=== PATIENT | female | born 1960 | race Hispanic/Latino ===

== ENCOUNTER 2017-03-31 15:32 | Emergency (ER) | payer OTHER ==
[2017-03-31] MEDS ORDERED: Morphine 2 mg/ml ISec IVP STA ×2 (15:54→16:43)
[2017-03-31 15:57] VITALS: PULSE 70; TEMP 98.9; O2SAT 100
--- NOTE | 2017-03-31 16:03 | ED PDOC ---
Arrival/HPI - General Chief Complaint: Upper Extremity Problem/Injury Time Seen by Provider: 03/31/17 15:54 Historian: Patient - History of Present Illness Narrative History of Present Illness (Text): 03/31/17 15:55 This 56 yo female presents to this ED c/o left wrist pain x [employer]. Patient stated she fell down backwards during ice skating class. She said she put her left hand down to break the fall. Patient denies elbow pain, shoulder pain, sob , cp, back pain, hip pain, neck pain, head injury, LOC, dizziness, or syncope. Time/Duration: Prior to Arrival Quality: Aching Context: School Past Medical History - Provider Review Nursing Documentation Reviewed: Yes - Infectious Disease Hx of Infectious Diseases: None - Reproductive Menopause: Yes - Psychiatric Hx Substance Use: No - Anesthesia Hx Anesthesia: No Hx Anesthesia Reactions: No Hx Malignant Hyperthermia: No Family/Social History - Physician Review Nursing Documentation Reviewed: Yes Family/Social History: No Known Family HX Smoking Status: Never Smoked Hx Alcohol Use: Yes Frequency of alcohol use: Socially Hx Substance Use: No Allergies/Home Meds Allergies/Adverse Reactions: Allergies No Known Allergies Allergy (Verified 03/31/17 15:45) Physical Exam Vital Signs Temp Pulse Resp BP Pulse Ox 03/31/17 18:00 70 16 92/50 L 100 03/31/17 15:55 98.9 F 70 18 76/46 L 100 03/31/17 15:37 72 20 95 Medical Decision Making ED Course and Treatment: 03/31/17 17:[address] Edwards Orthopedist. I reviewed x-rays with him. Mild displacement of Fx. He recommended splinting, and to have patient come to office at 1:[address] Edwards to see images. 03/31/17 17:53 Patient stated she called her private orthopedist, who got her an appointment for tomorrow 03/31/17 17:53 Patient was advised about risk for addiction to Percocet, falling, drowsiness, and side effects. To avoid operating machinery or driving. Re-evaluation Time: 17:20 Reassessment Condition: Re-examined, Improved - RAD Interpretation Narrative RAD Interpretations (Text): 03/31/17 17:55 Wrist x-rays: (+) intrarticulating Fx of left distal radius, closed Fx. Radiology Orders: 03/31/17 16:03 WRIST, LEFT 3 VIEWS [RAD] Stat 03/31/17 16:04 FOREARM LEFT [RAD] Stat - Medication Orders Current Medication Orders: Discontinued Medications Morphine Sulfate (Morphine) 2 mg IVP STAT STA Stop: 03/31/17 15:55 Last Admin: 03/31/17 16:05 Dose: 2 mg Morphine Sulfate (Morphine) 2 mg IVP STAT STA Stop: 03/31/17 16:44 Last Admin: 03/31/17 16:50 Dose: 2 mg Ondansetron HCl (Zofran Inj) 4 mg IVP STAT STA Stop: 03/31/17 15:56 Last Admin: 03/31/17 16:05 Dose: 4 mg - Procedure PROCEDURE NOTE (Text): PROCEDURE: SPLINT APPLICATION Applied by Mica Layer, supervised by Emergency Provider. Location: left wrist Procedure: The area of the splint was appropriately positioned. A 3 inch Ortho Sugar Tong was applied. Post-procedure: Good position. Neurovascular status remains intact. Capillary Refill < 2sec. Radial Pulse +3. Patient tolerated the procedure well with no immediate complications. Disposition/Present on Arrival - Present on Arrival Any Indicators Present on Arrival: No History of DVT/PE: No History of Uncontrolled Diabetes: No Urinary Catheter: No History of Decub. Ulcer: No History Surgical Site Infection Following: None - Disposition Have Diagnosis and Disposition been Completed?: Yes Diagnosis: Colles' fracture of left radius Disposition: HOME/ ROUTINE Disposition Time: 17:22 Patient Plan: Discharge Condition: IMPROVED Discharge Instructions (ExitCare): Wrist Fracture in Adults (ED) Additional Instructions: You need to see your doctor tomorrow at 8:30 in the morning as recommended by Dr. Naranjo Orthopedist. Keep wrist elevated, ice, rest, sling. Return to emergency if pain worsen. Prescriptions: oxyCODONE/Acetaminophen [Percocet 5/325 mg Tab] 1 ea PO Q6H PRN #12 tab PRN Reason: Pain, Severe (8-10) Referrals: Paulo Orellana, [Non-Staff] - Follow up with primary Pernell Edwards MD [Staff Provider] - Follow up with primary Forms: WORK NOTE, Air Visits Discharge ([place])
--- NOTE | 2017-03-31 18:00 | RAD ---
PROCEDURE: Right Wrist Radiographs. HISTORY: pain s/p fall COMPARISON: None. FINDINGS: BONES: Impaction fracture of the distal radius. JOINTS: Normal. No dislocation. SOFT TISSUES: Normal. OTHER FINDINGS: None. IMPRESSION: Impaction fracture of the distal radius.
--- NOTE | 2017-03-31 18:06 | RAD ---
HISTORY: pain s/p fall COMPARISON: No prior FINDINGS: BONES: Normal. No fracture. JOINTS: Normal. No osteoarthritis. SOFT TISSUE: Normal. OTHER FINDINGS: None . IMPRESSION: Normal Bone Xray.
[2017-03-31 18:33] VITALS: BP 92/50; RESP 16
== END 2017-03-31 18:00 | disposition home or self-care (01) ==
LOC: ED 15:32
DX: S52.532A Colles' fracture of left radius, initial encounter for closed fracture (principal); W01.0XXA Fall on same level from slipping, tripping and stumbling without subsequent striking against object, initial encounter; Y93.21 Activity, ice skating; Y92.39 Other specified sports and athletic area as the place of occurrence of the external cause
CPT/HCPCS: 29125; 73090; 73110; 96374; 96375; 96376; 99284; J2270; J2405